=== PATIENT | female | born 1975 | race Caucasian/White ===

== ENCOUNTER → 2019-12-24 | Outpatient (CLI) | payer BC ==
--- NOTE | 2019-12-29 08:08 | MM ---
Reason for exam: screening (asymptomatic). Last mammogram was performed 1 year and 6 months ago. History: Family history of breast cancer in maternal grandmother. Physical Findings: A clinical breast exam by your physician is recommended on an annual basis and results should be correlated with mammographic findings. MG Screening Mammo w CAD Bilateral CC and MLO view(s) were taken. Prior study comparison: June 18, 2018, mammogram, performed at [facility]. April 18, 2013, mammogram, performed at [facility]. There are scattered fibroglandular densities. Focal asymmetry right lower MLO view. No significant changes when compared with prior studies. ASSESSMENT: Benign, BI-RAD 2 RECOMMENDATION: Routine screening mammogram of both breasts in 1 year.
== END | disposition home or self-care (01) ==
LOC: RADMAMWWP 08:28
PROVIDERS: ATTEND Family Medicine
DX: Z12.31 Encounter for screening mammogram for malignant neoplasm of breast (principal)
CPT/HCPCS: 77067

== ENCOUNTER → 2021-02-23 | Outpatient (CLI) | payer BC ==
--- NOTE | 2021-02-27 09:31 | MM ---
Reason for exam: screening (asymptomatic). Last mammogram was performed 1 year and 2 months ago. History: Family history of breast cancer in maternal grandmother. Took hormonal contraceptives for 7 years beginning at age 22. Physical Findings: A clinical breast exam by your physician is recommended on an annual basis and results should be correlated with mammographic findings. MG Screening Mammo w CAD Bilateral CC and MLO view(s) were taken. Prior study comparison: December 24, 2019, bilateral MG screening mammo w CAD. June 18, 2018, mammogram, performed at [facility]. April 18, 2013, mammogram, performed at [facility]. There are scattered fibroglandular densities. No significant changes when compared with prior studies. ASSESSMENT: Negative, BI-RAD 1 RECOMMENDATION: Routine screening mammogram of both breasts in 1 year.
== END | disposition home or self-care (01) ==
LOC: RADMAMWWP 09:15
PROVIDERS: ATTEND Family Medicine
DX: Z12.31 Encounter for screening mammogram for malignant neoplasm of breast (principal); Z80.3 Family history of malignant neoplasm of breast
CPT/HCPCS: 77067

== ENCOUNTER 2021-03-31 10:36 | Day surgery (SDC) | payer BC ==
[2021-03-27 11:27] VITALS: BMI 31.3
[~2021-03-31 10:36] MED LIST: LACTATED RINGERS 1,000 ML IV SCH
[2021-03-31 11:15] VITALS: TEMP 96.9
[2021-03-31] MEDS ORDERED: PROPOFOL 10 MG/ML 20 ML VIAL IV ONE (12:14)
--- NOTE | 2021-03-31 12:18 | P.GSHP ---
History of Present Illness H&P Date: 03/31/21 Chief Complaint: GI bleed This a 45-year-old female who presents today for colonoscopy. She was found to be anemic. She hasn't found to be fecal occult blood positive. Past Medical History Past Medical History: Hyperlipidemia, Hypertension Additional Past Medical History / Comment(s): hx migraines, anemia, "blood on stooll test", History of Any Multi-Drug Resistant Organisms: None Reported Past Surgical History: Section Additional Past Surgical History / Comment(s): EGD, Past Anesthesia/Blood Transfusion Reactions: Motion Sickness Smoking Status: Former smoker - Past Family History Mother Family Medical History: No Reported History Medications and Allergies Home Medications Medication Instructions Recorded Confirmed Type ALPRAZolam [Xanax] 0.5 mg PO BID PRN 03/27/21 03/27/21 History Atorvastatin [Lipitor] 10 mg PO HS 03/27/21 03/27/21 History Cholecalciferol [Vitamin D3 (25 50 mcg PO DAILY 03/27/21 03/27/21 History Mcg = 1000 Iu)] Citalopram Hydrobromide 20 mg PO HS 03/27/21 03/27/21 History [Citalopram HBr] Iron Slow Release 45 mg PO DAILY 03/27/21 03/27/21 History lisinopriL 10 mg PO HS 03/27/21 03/27/21 History Allergies Allergy/AdvReac Type Severity Reaction Status Date / Time No Known Allergies Allergy Verified 03/31/21 11:16 Surgical - Exam Vital Signs Temp Pulse Resp BP Pulse Ox 96.9 F L 78 15 112/75 98 03/31/21 11:13 03/31/21 11:13 03/31/21 11:13 03/31/21 11:13 03/31/21 11:13 - General well developed, well nourished, no distress - Eyes PERRL - ENT normal pinna - Neck no masses - Respiratory normal expansion - Cardiovascular Rhythm: regular - Abdomen Abdomen: soft, non tender Assessment and Plan Assessment: GI bleed. We'll perform colonoscopy.
--- NOTE | 2021-03-31 12:36 | P.OP ---
Date of Procedure: 03/31/21 Preoperative Diagnosis: GI bleed Postoperative Diagnosis: Normal colon Procedure(s) Performed: [facility] Anesthesia: MAC Surgeon: Fabrizio Merrill Pathology: none sent Condition: stable Disposition: PACU Description of Procedure: The patient's placed on the endoscopy table in the lateral position. She rece ived IV sedation. Digital rectal exam was performed which revealed no abnormalities. Flexible colonoscope was then placed patient anus passed throughout the entire colon. The ileocecal valve was visualized. The cecum, ascending and transverse colon appeared normal. The descending and sigmoid colon appeared normal. Scope was brought back the rectum this appeared normal. Scope withdrawn for patient. There is no evidence of any GI bleed.
[2021-03-31 12:43] VITALS: RESP 16
[2021-03-31 12:55] VITALS: BP 139/86; PULSE 60
== END 2021-03-31 13:27 | disposition home or self-care (01) ==
LOC: ORWHC2ENDO 10:36
PROVIDERS: ATTEND Surgery
DX: K92.2 Gastrointestinal hemorrhage, unspecified (principal); D64.9 Anemia, unspecified; E78.5 Hyperlipidemia, unspecified; I10 Essential (primary) hypertension; G43.909 Migraine, unspecified, not intractable, without status migrainosus; Z98.891 History of uterine scar from previous surgery; Z87.891 Personal history of nicotine dependence; I25.2 Old myocardial infarction; F41.9 Anxiety disorder, unspecified; F32.9 Major depressive disorder, single episode, unspecified; Z79.899 Other long term (current) drug therapy
CPT/HCPCS: 81025; 45378; J2704